=== PATIENT | male | born 1945 | race Caucasian/White ===

== ENCOUNTER 2017-06-19 10:10 | Inpatient (IN) | payer MEDICARE ==
[~2017-06-19] VITALS: Ht 175.3 cm; Wt 107.5 kg
[~2017-06-19 10:10] MED LIST: ALLO100T PO; AMLO5TAB PO; ASPI-1071 PO; ATOR20TA PO; CYAN100070 PO; FINA5TAB11 PO; FISH OIL 1,2001 EAC1 PO; FLO0.4C PO; LEVO500T89 PO; LISI40TA4 PO; METO50TA7 PO; NITR0.4T48 SL; OMEP40CA37 PO; VITA400C19 PO
[2017-06-19] MEDS ORDERED: vancomycin/NS 1 GM ADD-VANTAGE 250 ML IV ONE (12:15)
[2017-06-19] MEDS ORDERED: piperacillin/tazo 3.375gm/50ml 50 ML IV ONE (12:15)
[2017-06-19] MEDS ORDERED: ondansetron inj. 24 MG in normal saline 250ml IV soln 228 ML IV SCH (12:15)
[2017-06-19] MEDS ORDERED: ondansetron/PF 4mg/2ml inj IV ONE (12:15)
[2017-06-19] MEDS ORDERED: morphine 5 MG/ML injection IV ONE (12:15)
[2017-06-19] MEDS ORDERED: morphine sulfate 8 MG/ML SYRINGE IV ONE (13:05)
[2017-06-19 13:07] LABS: BASOPHILS # (AUTO) 0.1 X10'3 (0-0.2); BASOPHILS % (AUTO) 1.2 % (0-1); EOSINOPHILS # (AUTO) 0.2 X10'3 (0-0.9); EOSINOPHILS % (AUTO) 1.7 % (0-6); HEMATOCRIT 41.7 % (42.0-52.0); HEMOGLOBIN 13.5 g/dl (14.0-17.9); LYMPHOCYTES # (AUTO) 1.1 X10'3 (1.1-4.8); LYMPHOCYTES % (AUTO) 11.6 % (21-51); MEAN CORPUSCULAR HEMOGLOBIN 30.8 PG (27.0-31.0); MEAN CORPUSCULAR HGB CONC 32.4 % (33.0-36.5); MEAN CORPUSCULAR VOLUME 94.9 FL (78-98); MEAN PLATELET VOLUME 8.2 FL (7.4-10.4); MONOCYTES # (AUTO) 1.9 X10'3 (0-0.9); MONOCYTES % (AUTO) 19.8 % (2-12); NEUTROPHILS # (AUTO) 6.4 X10'3 (1.8-7.7); NEUTROPHILS % (AUTO) 65.7 % (42-75); PLATELET COUNT 164 X10'3 (140-440); RED CELL DISTRIBUTION WIDTH 14.6 % (11.5-14.5); WHITE BLOOD COUNT 9.8 X10'3 (4.5-11.0)
[2017-06-19 13:19] LABS: INR 1.1 INR; PARTIAL THROMBOPLASTIN TIME 32 SECONDS (22-32); PROTHROMBIN TIME 11.1 SECONDS (9.0-12.0)
[2017-06-19 13:29] LABS: ALANINE AMINOTRANSFERASE 21 U/L (12-78); ALBUMIN 3.4 G/DL (3.4-5.0); ALBUMIN/GLOBULIN RATIO 0.9 (1.1-1.5); ALKALINE PHOSPHATASE 85 IU/L (46-116); ANION GAP 11 (8-16); ASPARTATE AMINO TRANSFERASE 22 U/L (10-37); BILIRUBIN,TOTAL 0.8 MG/DL (0.1-1.0); BLOOD UREA NITROGEN 15 MG/DL (7-18); BUN/CREATININE RATIO 11.6 (5.4-32.0); CALCIUM 8.7 MG/DL (8.5-10.1); CHLORIDE 99 MMOL/L (99-107); CREATININE 1.29 MG/DL (0.60-1.10); GLUCOSE 142 MG/DL (70-104); MAGNESIUM 1.5 MG/DL (1.5-2.4); POTASSIUM 3.2 MMOL/L (3.5-5.1); SODIUM 142 MMOL/L (135-145); TOTAL PROTEIN 7.4 G/DL (6.4-8.2); eGFR 55 ML/MIN
[2017-06-19] MEDS ORDERED: magnesium hydroxide 30ml (MOM) UD suspension PO PRN (14:55)
[2017-06-19] MEDS ORDERED: potassium Cl 40MEQ/NS 500ml 500 ML IV PRN ×2 (14:55)
[2017-06-19] MEDS ORDERED: morphine sulfate 8 MG/ML SYRINGE IV PRN ×2 (14:55)
[2017-06-19] MEDS ORDERED: magnesium 4gm in 100ml NS 100 ML IV PRN (14:55)
[2017-06-19] MEDS ORDERED: HYDROcodone/acetaminophen 5mg/325mg tablet PO PRN (14:55)
[2017-06-19] MEDS ORDERED: ondansetron/PF 4mg/2ml inj IV PRN (14:55)
[2017-06-19] MEDS ORDERED: magnesium Cl slow-release 64mg tablet PO PRN (14:55)
[2017-06-19] MEDS ORDERED: potassium Cl 20 mEq SR tablet PO PRN ×2 (14:55)
[2017-06-19] MEDS ORDERED: mag hydrox/Alum hydrox/simeth 30ml oral suspension PO PRN (14:55)
[2017-06-19] MEDS ORDERED: acetaminophen 325mg tablet PO PRN (14:55)
[2017-06-19] MEDS ORDERED: magnesium 2GM in 50ml NS 50 ML IV PRN (14:55)
[2017-06-19] MEDS: normal saline 1000ml 1,000 ML IV SCH ×2 (15:16→17:23)
[2017-06-19] MEDS: piperacillin/tazo 4.5gm/100ml 100 ML IV SCH ×2 (17:23→23:52)
[2017-06-19 18:00] VITALS: BP 180/73
[2017-06-19] MEDS: vancomycin/NS 1 GM ADD-VANTAGE 250 ML IV SCH (19:51)
[2017-06-19] MEDS: HYDROcodone/acetaminophen 10/325mg tab PO PRN (19:51)
[2017-06-19] MEDS ORDERED: temazepam 15mg capsule PO PRN (21:00)
[2017-06-19 22:00] VITALS: BP 133/76
[2017-06-19] MEDS ORDERED: morphine 5 MG/ML injection IV PRN (22:40)
[2017-06-19] MEDS: morphine sulfate 8 MG/ML SYRINGE IV PRN (23:52)
[2017-06-19] MEDS: atorvastatin 20mg tablet PO SCH (23:52)
[2017-06-20] VITALS (16 sets, daily range): BP systolic 134–202; BP diastolic 66–97
[2017-06-20] MEDS: morphine sulfate 8 MG/ML SYRINGE IV PRN (04:00)
[2017-06-20 06:10] LABS: BASOPHILS % (AUTO) 0.4 % (0-1); EOSINOPHILS # (AUTO) 0.3 X10'3 (0-0.9); EOSINOPHILS % (AUTO) 3.1 % (0-6); HEMATOCRIT 40.7 % (42.0-52.0); HEMOGLOBIN 13.2 g/dl (14.0-17.9); LYMPHOCYTES # (AUTO) 1.3 X10'3 (1.1-4.8); LYMPHOCYTES % (AUTO) 13.4 % (21-51); MEAN CORPUSCULAR HEMOGLOBIN 31.1 PG (27.0-31.0); MEAN CORPUSCULAR HGB CONC 32.4 % (33.0-36.5); MEAN PLATELET VOLUME 8.2 FL (7.4-10.4); MONOCYTES # (AUTO) 1.6 X10'3 (0-0.9); MONOCYTES % (AUTO) 16.5 % (2-12); NEUTROPHILS # (AUTO) 6.4 X10'3 (1.8-7.7); NEUTROPHILS % (AUTO) 66.6 % (42-75); PLATELET COUNT 158 X10'3 (140-440); RED BLOOD COUNT 4.24 X10'6 (4.70-6.10); WHITE BLOOD COUNT 9.5 X10'3 (4.5-11.0)
[2017-06-20 07:05] LABS: ALANINE AMINOTRANSFERASE 19 U/L (12-78); ALBUMIN 2.9 G/DL (3.4-5.0); ALBUMIN/GLOBULIN RATIO 0.8 (1.1-1.5); ALKALINE PHOSPHATASE 79 IU/L (46-116); ANION GAP 7 (8-16); ASPARTATE AMINO TRANSFERASE 17 U/L (10-37); BILIRUBIN,TOTAL 0.9 MG/DL (0.1-1.0); BLOOD UREA NITROGEN 16 MG/DL (7-18); BUN/CREATININE RATIO 11.5 (5.4-32.0); CALCIUM 8.3 MG/DL (8.5-10.1); CHLORIDE 102 MMOL/L (99-107); CREATININE 1.39 MG/DL (0.60-1.10); GLUCOSE 141 MG/DL (70-104); MAGNESIUM 1.6 MG/DL (1.5-2.4); POTASSIUM 3.4 MMOL/L (3.5-5.1); SODIUM 141 MMOL/L (135-145); TOTAL CARBON DIOXIDE 32.2 MMOL/L (24-32); TOTAL PROTEIN 6.7 G/DL (6.4-8.2); eGFR 50 ML/MIN
[2017-06-20] MEDS: K and/or MAG REPLACEMENT MC SCH (07:52)
[2017-06-20] MEDS: amLODIPine 5mg tablet PO SCH (07:57)
[2017-06-20] MEDS: metoprolol succinate 25mg (24-HOUR) SR. Tablet PO SCH (07:57)
[2017-06-20] MEDS: allopurinol 100mg tablet PO SCH ×2 (07:58)
[2017-06-20] MEDS: cyanocobalamin 500mcg tablet PO SCH (07:59)
[2017-06-20] MEDS: piperacillin/tazo 4.5gm/100ml 100 ML IV SCH ×2 (07:59→16:00)
[2017-06-20] MEDS: pantoprazole 40mg Tablet.DR PO SCH (07:59)
[2017-06-20] MEDS: lisinopril 20mg tablet PO SCH (07:59)
[2017-06-20] MEDS: aspirin 325mg tablet, delayed-release (Ecotrin) PO SCH (07:59)
[2017-06-20] MEDS: tamsulosin 0.4mg capsule PO SCH (08:00)
[2017-06-20] MEDS: vancomycin/NS 1 GM ADD-VANTAGE 250 ML IV SCH (08:00)
[2017-06-20 08:50] LABS: PLATELET ESTIMATE NORMAL; TOTAL CELLS COUNTED 100
[2017-06-20] MEDS: finasteride 5mg tablet PO SCH (09:14)
[2017-06-20] MEDS ORDERED: BUPIVAcaine/PF 2.5 mg/ml (0.25%) 30ml vial ONE (15:00)
[2017-06-20] MEDS: normal saline 1000ml 1,000 ML IV SCH ×2 (15:30→19:51)
[2017-06-20] MEDS ORDERED: desflurane 240ml liquid inh. IH ONE (15:40)
[2017-06-20] MEDS ORDERED: fentaNYL/PF 50MCG/1 ML 2ML syringe ONE (15:52)
[2017-06-20] MEDS ORDERED: midazolam 2 mg/2 ml injection ONE (15:52)
[2017-06-20] MEDS ORDERED: propofol inj 20 ML IV ONE (15:53)
[2017-06-20] MEDS ORDERED: LIDOcaine 1%/PF (10mg/ml) 5ml vial ONE (15:53)
[2017-06-20] MEDS ORDERED: ringers solution, lacted 1,000 ML IV SCH (16:28)
[2017-06-20] MEDS ORDERED: morphine sulfate 8 MG/ML SYRINGE IV PRN ×2 (16:30)
[2017-06-20] MEDS ORDERED: meperidine/PF 25mg/ml syringe IV PRN ×3 (16:30)
[2017-06-20] MEDS ORDERED: proCHLORperazine 10 MG/2 ml inj IV PRN (16:30)
[2017-06-20] MEDS ORDERED: ondansetron/PF 4mg/2ml inj IV PRN (16:30)
[2017-06-20] MEDS ORDERED: hydrALAZINE 20mg/ml inj. IV ONE (17:29)
[2017-06-20] MEDS ORDERED: VANCOMYCIN LEVEL IV ONE (19:30)
[2017-06-20] MEDS: atorvastatin 20mg tablet PO SCH (19:43)
[2017-06-21] MEDS: piperacillin/tazo 4.5gm/100ml 100 ML IV SCH ×2 (01:32→08:49)
[2017-06-21 05:00] VITALS: BP 160/72
[2017-06-21] MEDS: normal saline 1000ml 1,000 ML IV SCH (06:55)
[2017-06-21] MEDS ORDERED: SULF1TAB49 PO (07:21)
[2017-06-21] MEDS: pantoprazole 40mg Tablet.DR PO SCH (07:30)
[2017-06-21 07:32] LABS: BASOPHILS # (AUTO) 0.1 X10'3 (0-0.2); BASOPHILS % (AUTO) 0.9 % (0-1); EOSINOPHILS # (AUTO) 0.2 X10'3 (0-0.9); EOSINOPHILS % (AUTO) 2.4 % (0-6); HEMATOCRIT 37.8 % (42.0-52.0); HEMOGLOBIN 12.2 g/dl (14.0-17.9); LYMPHOCYTES # (AUTO) 0.8 X10'3 (1.1-4.8); LYMPHOCYTES % (AUTO) 9.2 % (21-51); MEAN CORPUSCULAR HEMOGLOBIN 30.8 PG (27.0-31.0); MEAN CORPUSCULAR HGB CONC 32.3 % (33.0-36.5); MEAN CORPUSCULAR VOLUME 95.4 FL (78-98); MEAN PLATELET VOLUME 8.2 FL (7.4-10.4); MONOCYTES # (AUTO) 1.2 X10'3 (0-0.9); NEUTROPHILS # (AUTO) 6.1 X10'3 (1.8-7.7); NEUTROPHILS % (AUTO) 73.5 % (42-75); PLATELET COUNT 151 X10'3 (140-440); RED BLOOD COUNT 3.96 X10'6 (4.70-6.10); RED CELL DISTRIBUTION WIDTH 14.8 % (11.5-14.5); WHITE BLOOD COUNT 8.3 X10'3 (4.5-11.0)
[2017-06-21 07:58] LABS: ALANINE AMINOTRANSFERASE 16 U/L (12-78); ALBUMIN 2.8 G/DL (3.4-5.0); ALBUMIN/GLOBULIN RATIO 0.7 (1.1-1.5); ALKALINE PHOSPHATASE 70 IU/L (46-116); ANION GAP 7 (8-16); ASPARTATE AMINO TRANSFERASE 20 U/L (10-37); BLOOD UREA NITROGEN 15 MG/DL (7-18); BUN/CREATININE RATIO 13.2 (5.4-32.0); CALCIUM 8.3 MG/DL (8.5-10.1); CHLORIDE 102 MMOL/L (99-107); CREATININE 1.14 MG/DL (0.60-1.10); GLUCOSE 126 MG/DL (70-104); MAGNESIUM 1.3 MG/DL (1.5-2.4); POTASSIUM 3.9 MMOL/L (3.5-5.1); SODIUM 139 MMOL/L (135-145); TOTAL CARBON DIOXIDE 30.2 MMOL/L (24-32); TOTAL PROTEIN 6.7 G/DL (6.4-8.2); eGFR 63 ML/MIN
[2017-06-21] MEDS: K and/or MAG REPLACEMENT MC SCH (08:00)
[2017-06-21] MEDS ORDERED: magnesium Cl slow-release 64mg tablet PO PRN (08:45)
[2017-06-21] MEDS: allopurinol 100mg tablet PO SCH ×2 (08:49)
[2017-06-21] MEDS: lisinopril 20mg tablet PO SCH (08:49)
[2017-06-21] MEDS: metoprolol succinate 25mg (24-HOUR) SR. Tablet PO SCH (08:49)
[2017-06-21] MEDS: cyanocobalamin 500mcg tablet PO SCH (08:50)
[2017-06-21] MEDS: aspirin 325mg tablet, delayed-release (Ecotrin) PO SCH (08:50)
[2017-06-21] MEDS: amLODIPine 5mg tablet PO SCH (08:50)
[2017-06-21] MEDS: tamsulosin 0.4mg capsule PO SCH (08:50)
[2017-06-21] MEDS: finasteride 5mg tablet PO SCH (08:56)
[2017-06-21 10:00] VITALS: BP 159/74
[2017-06-21] MEDS: HYDROcodone/acetaminophen 10/325mg tab PO PRN (10:01)
[2017-06-22] MEDS ORDERED: VANCOMYCIN LEVEL IV ONE (07:30)
== END 2017-06-21 10:30 | disposition home or self-care (01) | DRG 857 ==
LOC: ER 10:11 → ED HOLD 16:31 → ORTHO 4S 16:36
PROVIDERS: ADMIT Internal Medicine; ATTEND Orthopaedic Surgery Hand Surgery
PROC: 0LD60ZZ Extraction of Left Lower Arm and Wrist Tendon, Open Approach (ICD-10-PCS; 2017-06-20)
PROC: 0LT60ZZ Resection of Left Lower Arm and Wrist Tendon, Open Approach (ICD-10-PCS; principal; 2017-06-20 15:40)
DX: T81.4XXA Infection following a procedure, initial encounter (principal); L02.414 Cutaneous abscess of left upper limb; E66.01 Morbid (severe) obesity due to excess calories; D50.0 Iron deficiency anemia secondary to blood loss (chronic); E87.6 Hypokalemia; E78.00 Pure hypercholesterolemia, unspecified; E78.5 Hyperlipidemia, unspecified; I73.9 Peripheral vascular disease, unspecified; I10 Essential (primary) hypertension; I25.10 Atherosclerotic heart disease of native coronary artery without angina pectoris; K21.9 Gastro-esophageal reflux disease without esophagitis; M10.9 Gout, unspecified; N40.0 Benign prostatic hyperplasia without lower urinary tract symptoms; Y83.8 Other surgical procedures as the cause of abnormal reaction of the patient, or of later complication, without mention of misadventure at the time of the procedure; Z79.899 Other long term (current) drug therapy; Z79.82 Long term (current) use of aspirin; Z87.891 Personal history of nicotine dependence; Z82.3 Family history of stroke; Z80.42 Family history of malignant neoplasm of prostate; Y92.89 Other specified places as the place of occurrence of the external cause; Z68.35 Body mass index [BMI] 35.0-35.9, adult
CPT/HCPCS: 36415; 71010; 80053; 80202; 83605; 83735; 84145; 85025; 85610; 85730; 87040; 87070; 87075; 87077; 87102; 87186; 93005; 96365; 96366; 96367; 96375; 99285; A6222; A6402; A6446; A6449; A7000; J0360; J2001; J2175; J2250; J2270; J2405; J2543; J2704; J3010; J3370; J3490; J7030; J7120

== ENCOUNTER 2017-09-10 11:11 | Outpatient (CLI) | payer MEDICARE ==
[~2017-09-10 11:11] MED LIST changes: -FISH OIL 1,2001 EAC1 PO; -LEVO500T89 PO; -NITR0.4T48 SL; -VITA400C19 PO
== END 2017-09-10 23:59 | disposition home or self-care (01) ==
LOC: VAS 11:11
PROVIDERS: ATTEND Internal Medicine Cardiovascular Disease
DX: R22.41 Localized swelling, mass and lump, right lower limb (principal)
CPT/HCPCS: 93971